=== PATIENT | female | born 1990 | race American Indian/Alaskan Native ===

== ENCOUNTER 2019-12-06 17:30 | Emergency (ER) | payer MEDICAID ==
[2019-12-06 17:45] VITALS: BP 125/81
[2019-12-06 18:19] LABS: Basophils % (Auto) 0.6 % (0.0-1.8); Eosinophils # (Auto) 0.1 K/mm3 (0.0-0.4); Eosinophils % (Auto) 0.9 % (0.0-4.3); Hemoglobin 12.7 gm/dl (10.1-14.3); Lymphocytes # (Auto) 2.4 K/mm3 (1.2-5.4); Lymphocytes % (Auto) 31.7 % (13.4-35.0); Monocytes # (Auto) 0.5 K/mm3 (0.0-0.8)
[2019-12-06 18:26] LABS: Mucus,Urine FEW /HPF
[2019-12-06 18:26] LABS: Mean Corpuscular HGB Conc 33 % (30-34); Mean Corpuscular Volume 94 fl (79-97); Platelet Count 240 K/mm3 (140-440); Red Blood Count 4.16 M/mm3 (3.65-5.03)
[2019-12-06 18:32] LABS: Bilirubin,Urine Negative (Negative); Color,Urine Straw (Yellow)
[2019-12-06 18:41] LABS: Alanine Aminotransferase 10 units/L (7-56); Albumin 3.9 g/dL (3.9-5); BUN/Creatinine Ratio 10; Blood Urea Nitrogen 7 mg/dL (7-17); Calcium 9.3 mg/dL (8.4-10.2); Hemolysis Index 6
--- NOTE | 2019-12-06 18:54 | Emergency Department Report ---
ED General Adult HPI - General Chief complaint: Nausea/Vomiting/Diarrhea Stated complaint: DIZZY/VOMIT/FATIGUE Time Seen by Provider: 12/06/19 18:18 Source: patient, EMS Mode of arrival: Ambulatory Limitations: No Limitations - History of Present Illness Initial comments: Patient is a 29-year-old female presents emergency room with complaints of lightheadedness and one episode of vomiting that occurred earlier today. She has not had any vomiting since then. She has been able to tolerate p.o. intake without any difficulty at all. She states that she has also had an occasional cough and nasal drainage. She denies any fever, diarrhea, shortness of breath, chest pain, abd pain, vaginal bleeding, urinary sx. She states that she was around a COVID positive person. She denies any past medical history or allergies to medications. She states her last menstrual cycle was September 25, 2019. She states that she does have irregular cycles but was concerned that she may be . - Related Data Allergies Allergy/AdvReac Type Severity Reaction Status Date / Time No Known Allergies Allergy Unverified 12/06/19 17:39 ED Review of Systems ROS: Stated complaint: DIZZY/VOMIT/FATIGUE Other details as noted in HPI Comment: All other systems reviewed and negative ED Past Medical Hx - Past Medical History Previous Medical History?: No - Surgical History Past Surgical History?: No - Social History Smoking Status: Current Some Day Smoker Substance Use Type: Alcohol, Marijuana ED Physical Exam - General Limitations: No Limitations General appearance: alert, in no apparent distress - Head Head exam: Present: atraumatic, normocephalic - Eye Eye exam: Present: normal appearance - ENT ENT exam: Present: normal orophraynx, mucous membranes moist, other (pale turbinates with mucus drainage bilaterally, no purulent drainage, no sinus ttp ) - Respiratory Respiratory exam: Present: normal lung sounds bilaterally. Absent: respiratory distress, wheezes, rales, rhonchi, stridor, chest wall tenderness, accessory muscle use, decreased breath sounds, prolonged expiratory - Cardiovascular Cardiovascular Exam: Present: regular rate, normal rhythm, normal heart sounds. Absent: systolic murmur, diastolic murmur, rubs, gallop - Neurological Exam Neurological exam: Present: alert, oriented X3 - Psychiatric Psychiatric exam: Present: normal affect, normal mood - Skin Skin exam: Present: warm, dry, intact ED Course Vital Signs 12/06/19 17:42 Temperature 98.1 F Pulse Rate 71 Respiratory 20 Rate Blood Pressure 125/81 O2 Sat by Pulse 98 Oximetry ED Medical Decision Making - Lab Data Result diagrams: 12/06/19 18:07 12/06/19 18:07 Lab Results 12/06/19 12/06/19 12/06/19 Range/Units 18:07 18:07 18:07 WBC 7.7 (4.5-11.0) K/mm3 RBC 4.16 (3.65-5.03) M/mm3 Hgb 12.7 (10.1-14.3) gm/dl Hct 39.0 (30.3-42.9) % MCV 94 (79-97) fl MCH 31 (28-32) pg MCHC 33 (30-34) % RDW 14.0 (13.2-15.2) % Plt Count 240 (140-440) K/mm3 Lymph % (Auto) 31.7 (13.4-35.0) % [place] % (Auto) 7.0 (0.0-7.3) % Eos % (Auto) 0.9 (0.0-4.3) % Baso % (Auto) 0.6 (0.0-1.8) % Lymph # 2.4 (1.2-5.4) K/mm3 [place] # 0.5 (0.0-0.8) K/mm3 Eos # 0.1 (0.0-0.4) K/mm3 Baso # 0.0 (0.0-0.1) K/mm3 Seg Neutrophils % 59.8 (40.0-70.0) % Seg Neutrophils # 4.6 (1.8-7.7) K/mm3 Sodium 140 (137-145) mmol/L Potassium 4.3 (3.6-5.0) mmol/L Chloride 100.0 (98-107) mmol/L Carbon Dioxide 29 (22-30) mmol/L Anion Gap 15 mmol/L BUN 7 (7-17) mg/dL Creatinine 0.7 (0.7-1.2) mg/dL Estimated GFR > 60 ml/min BUN/Creatinine Ratio 10 % Glucose 89 (65-100) mg/dL Calcium 9.3 (8.4-10.2) mg/dL Total Bilirubin 0.60 (0.1-1.2) mg/dL AST 20 (5-40) units/L ALT 10 (7-56) units/L Alkaline Phosphatase 91 (35-129) units/L Total Protein 8.0 (6.3-8.2) g/dL Albumin 3.9 (3.9-5) g/dL Albumin/Globulin Ratio 1.0 % Lipase 15 (13-60) units/L HCG, Quant < 2 (0-4) mIU/mL Urine Color (Yellow) Urine Turbidity (Clear) Urine pH (5.0-7.0) Ur Specific [employer] (1.003-1.030) Urine Protein (Negative) mg/dL Urine Glucose (UA) (Negative) mg/dL Urine Ketones (Negative) mg/dL Urine Nitrite (Negative) Ur Reducing Substances Urine Bilirubin (Negative) Urine Ictotest Urine Urobilinogen (<2.0) mg/dL Ur Leukocyte Esterase (Negative) Urine WBC (Auto) (0.0-6.0) /HPF Urine RBC (Auto) (0.0-6.0) /HPF U Epithel Cells (Auto) (0-13.0) /HPF Urine Mucus /HPF 05/23/20 Range/Units Unknown WBC (4.5-11.0) K/mm3 RBC (3.65-5.03) M/mm3 Hgb (10.1-14.3) gm/dl Hct (30.3-42.9) % MCV (79-97) fl MCH (28-32) pg MCHC (30-34) % RDW (13.2-15.2) % Plt Count (140-440) K/mm3 Lymph % (Auto) (13.4-35.0) % [place] % (Auto) (0.0-7.3) % Eos % (Auto) (0.0-4.3) % Baso % (Auto) (0.0-1.8) % Lymph # (1.2-5.4) K/mm3 [place] # (0.0-0.8) K/mm3 Eos # (0.0-0.4) K/mm3 Baso # (0.0-0.1) K/mm3 Seg Neutrophils % (40.0-70.0) % Seg Neutrophils # (1.8-7.7) K/mm3 Sodium (137-145) mmol/L Potassium (3.6-5.0) mmol/L Chloride (98-107) mmol/L Carbon Dioxide (22-30) mmol/L Anion Gap mmol/L BUN (7-17) mg/dL Creatinine (0.7-1.2) mg/dL Estimated GFR ml/min BUN/Creatinine Ratio % Glucose (65-100) mg/dL Calcium (8.4-10.2) mg/dL Total Bilirubin (0.1-1.2) mg/dL AST (5-40) units/L ALT (7-56) units/L Alkaline Phosphatase (35-129) units/L Total Protein (6.3-8.2) g/dL Albumin (3.9-5) g/dL Albumin/Globulin Ratio % Lipase (13-60) units/L HCG, Quant (0-4) mIU/mL Urine Color Straw (Yellow) Urine Turbidity Clear (Clear) Urine pH 6.0 (5.0-7.0) Ur Specific [employer] 1.015 (1.003-1.030) Urine Protein 30 mg/dl (Negative) mg/dL Urine Glucose (UA) Negative (Negative) mg/dL Urine Ketones Negative (Negative) mg/dL Urine Nitrite Negative (Negative) Ur Reducing Substances Not Reportable Urine Bilirubin Negative (Negative) Urine Ictotest Not Reportable Urine Urobilinogen 2.0 (<2.0) mg/dL Ur Leukocyte Esterase Negative (Negative) Urine WBC (Auto) 1.0 (0.0-6.0) /HPF Urine RBC (Auto) 7.0 (0.0-6.0) /HPF U Epithel Cells (Auto) 13.0 (0-13.0) /HPF Urine Mucus Few /HPF - Medical Decision Making Patient is a 29-year-old female presents emergency room with complaints of lightheadedness and one episode of vomiting that occurred earlier today. She arias s not had any vomiting since then. She has been able to tolerate p.o. intake without any difficulty at all. She states that she has also had an occasional cough and nasal drainage. She denies any fever, diarrhea, shortness of breath, chest pain, abd pain, vaginal bleeding, urinary sx. She states that she was around a COVID positive person. She denies any past medical history or allergies to medications. She states her last menstrual cycle was September 25, 2019. She states that she does have irregular cycles but was concerned that she may be . vitals are normal. on exam: pale turbinates with mucus drainage bilaterally, no purulent drainage, no sinus ttp, breath sounds are clear bi laterally, no w/r/r, no abd ttp. Labs are normal. hCG is negative. UA without evidence of UTI. Patient has no fever, no hypoxia, no tachycardia. Discussed supportive care and symptomatic treatment with patient. Due to the fact that patient was around a COVID positive patient and she is experiencing cold-like symptoms discussed self quarantine and discussed strict return precautions. advised pt May use Mucinex [id number]. May use Flonase nasal spray. May take Zyrtec or Claritin [id number]. Increase your water intake. May use a humidifier. Follow-up with your primary care doctor for reexamination. Please discuss with your primary care doctor about COVID-19 testing. Return to the emergency room immediately for any new or worsening symptoms including but not limited to high fever, chest pain, shortness of breath, unable to tolerate by mouth intake, etc. Please self quarantine for 2 weeks. Please do not go out in public. If you are at home around others please wear a mask. If you need to cough or sneeze please do so in a napkin and throw it away and wash your hands immediately. Wash your hands frequently. Wipe everything down. Critical care attestation.: If time is entered above; I have spent that time in minutes in the direct care of this critically ill patient, excluding procedure time. ED Disposition Clinical Impression: Nasal congestion, Cough Vomiting Qualifiers: Vomiting type: unspecified Vomiting Intractability: non-intractable Nausea presence: without nausea Qualified Code(s): R11.11 - Vomiting without nausea Disposition: DC-01 TO HOME OR SELFCARE Is pt being admited?: No Does the pt Need Aspirin: No Condition: Stable Instructions: COVID-19, Viral Syndrome (ED) Additional Instructions: May use Mucinex [id number]. May use Flonase nasal spray. May take Zyrtec or Claritin [id number]. Increase your water intake. May use a humidifier. Follow-up with your primary care doctor for reexamination. Please discuss with your primary care doctor about COVID-19 testing. Return to the emergency room immediately for any new or worsening symptoms including but not limited to high fever, chest pain, shortness of breath, unable to tolerate by mouth intake, etc. Please self quarantine for 2 weeks. Please do not go out in public. If you are at home around others please wear a mask. If you need to cough or sneeze please do so in a napkin and throw it away and wash your hands immediately. Wash your hands frequently. Wipe everything down. Referrals: AMADEO BEE MD [Staff Physician] - 3-5 Days [facility] [Provider Group] - 3-5 Days Time of Disposition: 18:53 Print Language: FAROESE
== END 2019-12-06 20:00 | disposition home or self-care (01) ==
LOC: ED 17:30
DX: R11.10 Vomiting, unspecified (principal); R09.81 Nasal congestion; R05 Cough; F17.200 Nicotine dependence, unspecified, uncomplicated; F12.90 Cannabis use, unspecified, uncomplicated
CPT/HCPCS: 36415; 80053; 81001; 83690; 84702; 85025